=== PATIENT | male | born 1995 | race Caucasian/White ===

== ENCOUNTER 2018-06-16 22:15 | Emergency (ER) | payer SELFPAY ==
[~2018-06-16] VITALS: Ht 172.7 cm; Wt 74.8 kg
[2018-06-16 23:01] VITALS: BP_SYST 139
== END 2018-06-17 01:07 | disposition left against medical advice (07) ==
LOC: SED 22:15
DX: M79.601 Pain in right arm (principal); Z53.21 Procedure and treatment not carried out due to patient leaving prior to being seen by health care provider

== ENCOUNTER 2020-02-22 17:45 | Emergency (ER) | payer BC, MEDICAID ==
[~2020-02-22] VITALS: Ht 172.7 cm; Wt 74.8 kg
[2020-02-22 17:47] VITALS: BP_SYST 128
== END 2020-02-22 19:10 | disposition home or self-care (01) ==
LOC: SED 17:45
DX: F41.9 Anxiety disorder, unspecified (principal); R56.9 Unspecified convulsions; Z88.6 Allergy status to analgesic agent
CPT/HCPCS: 99283